=== PATIENT | female | born 1985 | race Caucasian/White ===

== ENCOUNTER 2024-05-12 03:46 | Emergency (ER) | payer OTHER ==
[~2024-05-12] VITALS: Ht 154.9 cm; Wt 67.0 kg
[2024-05-12 03:57] VITALS: O2SAT 100
[2024-05-12 04:30] LABS: BASOPHILS % 0.4 % (0.0-2.0); HEMATOCRIT. 38.8 % (36.0-48.0); HEMOGLOBIN. 12.9 g/dL (12.0-16.0); LYMPHOCYTES % 30.7 % (20.0-50.0); MEAN CORPUSCULAR HEMOGLOBIN 29.3 pg (28.0-32.0); MEAN CORPUSCULAR HGB CONC 33.2 g/dL (31.0-37.0); MEAN CORPUSCULAR VOLUME 88.4 fL (81.0-99.0); MEAN PLATELET VOLUME 6.8 fl (7.4-10.4); MONOCYTES % 4.7 % (2.0-8.0); NEUTROPHILS % 63.2 % (40.0-76.0); PLATELET 229 x1000/uL (130-400); RED BLOOD CELL COUNT 4.39 mill/uL (4.2-5.4); RED CELL DISTRIBUTION WIDTH 13.8 % (11.6-14.6); WHITE BLOOD COUNT 8.2 x1000/uL (4.5-11.0)
[2024-05-12 04:40] LABS: CHLORIDE 108 mEq/L (98-107); POTASSIUM 3.7 mEq/L (3.5-5.1); SODIUM 142 mEq/L (136-145)
[2024-05-12 04:41] LABS: CALCIUM 9.4 mg/dL (8.7-10.4); CARBON DIOXIDE 26 mEq/L (21-32)
[2024-05-12 04:45] LABS: CREATININE 0.8 mg/dL (0.6-1.0)
[2024-05-12 04:46] LABS: GLUCOSE 102 mg/dL (70-105); UREA NITROGEN BLOOD 9 mg/dL (9-23)
[2024-05-12 04:48] LABS: ALANINE AMINOTRANSFERASE 45 IU/L (10-49); ALBUMIN 4.4 g/dL (3.2-4.8); ASPARTATE AMINOTRANSFERASE 49 IU/L (<34); BILIRUBIN DIRECT 0.3 mg/dL (<=3.0); BILIRUBIN TOTAL 1.2 mg/dL (0.1-1.0); PROTEIN TOTAL 7.1 g/dL (6.0-8.3)
[2024-05-12] MEDS: ONDANSETRON HCL 4MG/2ML INJ IV STA (05:10)
[2024-05-12] MEDS: KETOROLAC 30MG/ML VIAL IV STA (05:10)
[2024-05-12 05:12] LABS: HCG SCREEN NEGATIVE
[2024-05-12 05:13] LABS: INR 0.9; PROTHROMBIN TIME 10.5 sec (9.6-11.0)
[2024-05-12 05:21] LABS: CLARITY URINE CLEAR (CLEAR); COLOR URINE YELLOW (YELLOW); GLUCOSE URINE NEGATIVE (NEGATIVE); KETONES URINE NEGATIVE (NEGATIVE); LEUKOCYTE ESTERASE URINE NEGATIVE (NEGATIVE); NITRITE URINE NEGATIVE (NEGATIVE); OCCULT BLOOD URINE NEGATIVE (NEGATIVE); PH URINE 6.5 (4.5-8.0); PROTEIN URINE NEGATIVE (NEGATIVE); SPECIFIC GRAVITY URINE 1.008 (1.005-1.030); UROBILINOGEN URINE 0.2 E.U./dL (0.2-1.0)
[2024-05-12] MEDS ORDERED: TOPUD PO (06:24)
[2024-05-12 06:34] VITALS: BP 128/77; PULSE 69; RESP 20; TEMP 37.05852; O2SAT 100
== END 2024-05-12 06:42 | disposition home or self-care (01) ==
LOC: ER 03:46
DX: R10.9 Unspecified abdominal pain (principal)
CPT/HCPCS: 99285; 74176; 96374; 96375; 80076; 80048; 81003; 81025; 84703; 83690; 85025; 85610; 36415; J1885; J2405